=== PATIENT | female | born 1985 | race Caucasian/White ===

== ENCOUNTER 2018-11-01 20:40 | Outpatient (CLI) | payer MEDICAID ==
--- NOTE | 2018-11-02 09:59 | Ultrasound Report ---
Reason: TEST POSITIVE Procedure Date: 11/01/2018 Accession Number: [id number] / [id number] Procedure: US - OB First Trimester CPT Code: FULL RESULT: EXAM: FIRST TRIMESTER OBSTETRIC ULTRASOUND (Less than 11 weeks) EXAM DATE: 11/01/2018 10:15 PM. CLINICAL HISTORY: TEST POSITIVE. LMP: 08/06/2018. COMPARISONS: None. TECHNIQUE: Transabdominal ultrasound examination with static image documentation. CLINICAL DATES: EGA 12 weeks, 3 days with RAMIRO 05/13/2019 based on LMP. ASSESSMENT: Gestational Sac: Intrauterine with normal contours. Embryo: CRL (crown-rump length) 62 mm = 12 weeks, 4 days. Cardiac activity: 152 beats per minute. Yolk sac: Not seen. Amniotic fluid: Not accurately assessed at this gestational age. Early placenta: Anterior. Other: No perigestational fluid collection demonstrated. MATERNAL STRUCTURES: Uterus: Anteverted. Unremarkable. Cervix: Closed. Right Ovary/Adnexa: The ovary measures 2.6 x 2.1 x 1.9 cm, volume 5.4 cc. Unremarkable. Left Ovary/Adnexa: The ovary measures 2.5 x 2.3 x 1.9 cm, volume 5.7 cc. Corpus luteal cyst measures 1.5 x 1.6 x 1.4 cm. Free Fluid: None. Other: None. IMPRESSION: 1. Single viable intrauterine at EGA 12 weeks, 4 days with RAMIRO 05/12/2019 based on crown-rump length, which is concordant with LMP. 2. Assigned dating is RAMIRO 05/13/2019 based on LMP. LISAA
== END 2018-11-01 20:41 | disposition home or self-care (01) ==
LOC: DI 20:40
PROVIDERS: ATTEND Nurse Practitioner Obstetrics & Gynecology
DX: Z32.01 Encounter for pregnancy test, result positive (principal); Z3A.12 12 weeks gestation of pregnancy
CPT/HCPCS: 76801

== ENCOUNTER 2018-11-06 08:00 | Outpatient (CLI) | payer MEDICAID ==
[2018-11-06 16:23] LABS: MUDS CUTOFF CONCENTRATIONS CUTOFF CONC BELOW:
[2018-11-06 16:42] LABS: AMPHETAMINE SCREEN,URINE NEGATIVE (NEGATIVE); BENZODIAZEPINES SCREEN, URINE NEGATIVE (NEGATIVE); COCAINE SCREEN URINE NEGATIVE (NEGATIVE); METHADONE SCREEN, URINE NEGATIVE (NEGATIVE); METHAMPHETAMINES SCREEN, URINE NEGATIVE (NEGATIVE); OPIATE SCREEN, URINE NEGATIVE (NEGATIVE); OXYCODONE SCREEN, URINE NEGATIVE (NEGATIVE); PROPOXYPHENE SCREEN, URINE NEGATIVE (NEGATIVE); TRICYCLIC ANTIDEPRESSANT,URINE NEGATIVE (NEGATIVE)
== END 2018-11-06 23:59 | disposition home or self-care (01) ==
LOC: LAB.R 08:00
PROVIDERS: ATTEND Registered Nurse
DX: Z33.1 Pregnant state, incidental (principal)
CPT/HCPCS: 80306

== ENCOUNTER 2018-11-06 10:17 | Outpatient (CLI) | payer MEDICAID ==
[2018-11-06 10:33] LABS: BILIRUBIN,URINE NEGATIVE (NEGATIVE); GLUCOSE, URINE (UA) NEGATIVE (NEGATIVE); KETONES,URINE (UA) NEGATIVE (NEGATIVE); LEUKOCYTE ESTERASE, URINE NEGATIVE (NEGATIVE); NITRITE,URINE NEGATIVE (NEGATIVE); OCCULT BLOOD,URINE TRACE-INTA (NEGATIVE); PROTEIN,URINE NEGATIVE (NEGATIVE); UROBILINOGEN,URINE 0.2 (NORMAL) E.U./dL (NORMAL)
[2018-11-06 10:40] LABS: BACTERIA,URINE Rare /HPF (None Seen); CLARITY,URINE CLEAR (CLEAR); RBC,URINE 0-5 /HPF (0-5); SQUAMOUS EPITHELIAL CELL,UR RARE Squamous (<= Few)
[2018-11-06 10:50] LABS: BASOPHILS % (AUTO) 0.2 %; EOSINOPHILS # (AUTO) 0.2 10^3/uL (0.0-0.7); EOSINOPHILS % (AUTO) 1.6 %; LYMPHOCYTES # (AUTO) 1.8 10^3/uL (1.5-3.5); LYMPHOCYTES % (AUTO) 17.1 %; MEAN CORPUSCULAR HEMOGLOBIN 28.8 pg (27.0-31.0); MEAN CORPUSCULAR HGB CONC 34.4 g/dL (32.0-36.0); MEAN CORPUSCULAR VOLUME 83.5 fL (81.0-99.0); MEAN PLATELET VOLUME 9.9 fL (7.9-10.8); MONOCYTES # (AUTO) 0.5 10^3/uL (0.0-1.0); MONOCYTES % (AUTO) 4.8 %; NEUTROPHILS # (AUTO) 7.9 10^3/uL (1.5-6.6); NEUTROPHILS % (AUTO) 76.3 %; PLT - PLATELET COUNT 212 10^3/uL (130-450); RED BLOOD COUNT 4.16 10^6/uL (4.20-5.40); RED CELL DISTRIBUTION WIDTH 12.7 % (12.0-15.0); WHITE BLOOD COUNT 10.4 x10^3/uL (4.8-10.8)
[2018-11-07 13:36] LABS: HIV AG/AB 4TH GEN NON-REACTIVE (NON-REACTIVE)
[2018-11-07 13:50] LABS: HEPATITIS C ANTIBODY NON-REACTIVE (NON-REACTIVE)
[2018-11-07 13:53] LABS: HEPATITIS B SURFACE ANTIGEN NON-REACTIVE (NON-REACTIVE)
== END 2018-11-06 10:18 | disposition home or self-care (01) ==
LOC: LAB 10:17
PROVIDERS: ATTEND Registered Nurse
DX: Z33.1 Pregnant state, incidental (principal)
CPT/HCPCS: 36415; 80306; 81001; 81599; 85025; 86592; 86762; 86803; 86850; 86900; 86901; 87086; 87340; 87389

== ENCOUNTER 2019-01-01 13:14 | Outpatient (CLI) | payer MEDICAID ==
--- NOTE | 2019-01-03 11:38 | Ultrasound Report ---
Reason: Procedure Date: 01/01/2019 Accession Number: [id number] / [id number] Procedure: US - OB Detailed Eval CPT Code: FULL RESULT: EXAM: COMPLETE OBSTETRICAL ULTRASOUND EXAM DATE: 01/01/2019 01:39 PM. CLINICAL HISTORY: anatomic survey. COMPARISON: None. TECHNIQUE: Real-time sonographic evaluation of the fetus performed by the manager document. Multiple artist's representative static images were saved for review. DATING: Established EGA 21 weeks 1 day with RAMIRO 05/13/2019 based on working due date. EGA 21 weeks 2 days with RAMIRO 05/12/2019 based on first ultrasound. EGA 20 weeks 4 days with RAMIRO 05/17/2019 based on the current ultrasound. GENERAL EVALUATION Aguilera . Cardiac activity: 135 bpm. movement: Visualized. Presentation: Transverse. Placenta: Anterior position. No evidence for previa. Umbilical cord: 3 vessel cord. Central placental cord origin. Amniotic fluid: Subjectively normal. MVP 4.5 cm with DARRION 13.3 cm. BIOMETRY Bi-Parietal Diameter (BPD): 4.8 cm, 3 days Head Circumference (HC): 17.8 cm, 20 weeks 1 day Abdominal Circumference (AC): 16.3 cm, 21 weeks 2 days Femur Length (FL): 3.4 cm, 20 weeks 4 days Estimated Weight: 389 g, 35th percentile for 21 weeks 1 day. ANATOMY The intracranial structures, profile, face/nose/lips, spine, 4 chamber heart and outflow tracts, stomach, abdominal wall and cord insertion, diaphragm, kidneys, bladder, and extremities were visualized and demonstrate no abnormality. MATERNAL STRUCTURES Uterus: Unremarkable. Cervix: Long and closed. Transabdominal length 4 cm. Right ovary/adnexa: Unremarkable. Left ovary/adnexa: Unremarkable. Free fluid: None. IMPRESSION: 1. Aguilera live intrauterine with gestational age 21 weeks 1 day based on working due date. 2. Estimated weight is within expected limits for assigned dating. 3. Normal anatomic survey. No anatomic abnormalities are detected at this time. RADIA
== END 2019-01-01 13:15 | disposition home or self-care (01) ==
LOC: DI 13:14
PROVIDERS: ATTEND Registered Nurse
DX: Z36.9 Encounter for antenatal screening, unspecified (principal)
CPT/HCPCS: 76811

== ENCOUNTER 2019-01-21 02:49 | Outpatient (CLI) | payer MEDICAID ==
[2019-01-21 03:58] VITALS: BP 119/40
--- NOTE | 2019-01-23 10:44 | PROCEDURE REPORT ---
- HPI Diagnosis/Indication for NST: Other (postcoetal bleeding) Current EDU 05/13/19 Gestation 24 Weeks and 0 Days 3 Para 0 Vital Signs Temperature 37.1 C 01/21/19 03:00 Heart Rate 76 01/21/19 03:00 Respiratory Rate 16 01/21/19 03:00 Blood Pressure 119/40 L 01/21/19 03:00 O2 Saturation 98 01/21/19 03:00 Temperature 37.1 C 01/21/19 03:52 Heart Rate 76 01/21/19 03:52 Respiratory Rate 16 01/21/19 03:52 Blood Pressure 119/40 L 01/21/19 03:52 O2 Saturation 98 01/21/19 03:52 - NST Procedure normal for EGA - Results and Plan Findings/Impression: Pt had single episode of Postcoetal bleeding. Placenta is not previa. Blood type is Rh Positive. bleeding resolved. Plan: Pelvic rest 3 weeks, keep clinic appt.
== END 2019-01-21 04:05 | disposition home or self-care (01) ==
LOC: WFO 02:49 → FBP 02:50 → WFO 04:05
PROVIDERS: ATTEND Obstetrics & Gynecology
DX: O99.89 Other specified diseases and conditions complicating pregnancy, childbirth and the puerperium (principal); N93.0 Postcoital and contact bleeding; Z3A.24 24 weeks gestation of pregnancy
CPT/HCPCS: 99213

== ENCOUNTER 2019-01-23 14:14 | Outpatient (CLI) | payer MEDICAID ==
[2019-01-23 15:19] LABS: BILIRUBIN,URINE NEGATIVE (NEGATIVE); GLUCOSE, URINE (UA) NEGATIVE (NEGATIVE); KETONES,URINE (UA) NEGATIVE (NEGATIVE); LEUKOCYTE ESTERASE, URINE NEGATIVE (NEGATIVE); NITRITE,URINE NEGATIVE (NEGATIVE); OCCULT BLOOD,URINE TRACE-LYSE (NEGATIVE); PROTEIN,URINE NEGATIVE (NEGATIVE); UROBILINOGEN,URINE 0.2 (NORMAL) E.U./dL (NORMAL)
[2019-01-23 15:20] LABS: CLARITY,URINE CLEAR (CLEAR)
[2019-01-23 15:21] VITALS: BP 109/50
[2019-01-23 15:30] LABS: RBC,URINE 0-5 /HPF (0-5); SQUAMOUS EPITHELIAL CELL,UR FEW Squamous (<= Few)
[2019-01-23 15:31] LABS: BACTERIA,URINE Rare /HPF (None Seen)
--- NOTE | 2019-01-23 17:28 | Ultrasound Report ---
Reason: cramping Procedure Date: 01/23/2019 Accession Number: [id number] / [id number] Procedure: US - OB Transvaginal CPT Code: FULL RESULT: EXAM: LIMITED OBSTETRICAL ULTRASOUND EXAM DATE: 01/23/2019 04:39 PM. CLINICAL HISTORY: Cramping. Check cervical length. COMPARISON: 01/01/2019. TECHNIQUE: Real-time sonographic evaluation of the fetus performed by the dobby loom fixer. Multiple freight representative static images were saved for review. Additional transvaginal imaging to more accurately evaluate cervical length/placental position/etc. DATING: Established EGA 24 weeks 2 days with RAMIRO 05/13/2019. GENERAL EVALUATION Aguilera . Cardiac activity: 138 bpm. movement: Visualized. Presentation: Cephalic. Placenta: Anterior position. Amniotic fluid: Normal. DARRION 16.0 cm. MVP 4.8 cm. MATERNAL STRUCTURES Cervix closed, 3.6 cm long. IMPRESSION: 1. Aguilera live intrauterine with gestational age 24 weeks 2 days based on established RAMIRO. 2. Closed cervix 3.6 cm long. RADIA
[2019-01-23 20:59] LABS: CANDIDA GROUP DNA NEGATIVE (NEGATIVE); CANDIDA KRUSEI DNA NEGATIVE (NEGATIVE); TRICHOMONAS VAGINALIS DNA NEGATIVE (NEGATIVE)
--- NOTE | 2019-01-25 12:38 | PROVIDER PROGRESS NOTE ---
- HPI Chief Complaint: Labor Current : Current EDU 05/13/19 Gestation 24 Weeks and 2 Days 3 Para 0 Vital Signs Temperature 36.8 C 01/23/19 14:35 Heart Rate 69 01/23/19 14:35 Respiratory Rate 18 01/23/19 14:35 Blood Pressure 109/50 L 01/23/19 14:35 O2 Saturation 98 01/23/19 14:35 Temperature 36.8 C 01/23/19 14:35 Heart Rate 69 01/23/19 14:35 Respiratory Rate 18 01/23/19 14:35 Blood Pressure 109/50 L 01/23/19 14:35 O2 Saturation 98 01/23/19 14:35 - Exam Diana presents to [facility] with complaints of lower abdominal cramping. She denies VB or Lof and reports +FM. She first phoned the clinic and was directed to present to L&D for further evaluation. O: NST reactive for 24wks. Baseline 140s, no decels. Tocometry does not reveal contractions with extended monitoring x 1 hour Upon palpation some mild uterine irritability noted. No tenderness noted. A: 33yo @ 24wks gestation False labor <37wks gestation, second trimester Abdominal cramping UA neg AFFIRM - pending Transvaginal cervical length 3.6cm P: Advised increased fluid intake AFFIRM pending - will notify patient of results if abnormal and treatment PRN Pt released home with precautions and instruction to f/u within the next week or sooner PRN. - Procedures OB Procedure Performed: Other Diagnosis/Indication for NST: Other NST Procedure: NST reactive for 24 wks FHR baseline 140s, no decelerations noted Tocometry reveals absence of uterine contractions Date: 01/23/19 Findings: Transvaginal cervical length WNL. UA neg Tocometry is absent of uterine contractions. Mild uterine irritability palpated No vaginal bleeding or leakage of fluid. Pt reports +FM - Plan Plan: Advised increased fluid intake AFFIRM pending - will notify patient of results if abnormal and treatment PRN Pt released home with precautions and instructions to f/u in the clinic within the next week or sooner PRN. Has emergency contact information. DIAGNOSIS: Abdominal cramping False labor <37wks gestation, second trimester
== END 2019-01-23 18:00 | disposition home or self-care (01) ==
LOC: WFO 14:14 → FBP 14:18 → WFO 18:00
PROVIDERS: ATTEND Nurse Practitioner Obstetrics & Gynecology
DX: O47.02 False labor before 37 completed weeks of gestation, second trimester (principal); Z3A.24 24 weeks gestation of pregnancy
CPT/HCPCS: 76817; 81001; 87086; 87661; 87801; 99214

== ENCOUNTER 2019-01-26 20:37 | Outpatient (CLI) | payer MEDICAID ==
[2019-01-26 21:34] VITALS: BP 120/49
--- NOTE | 2019-01-30 10:01 | PROCEDURE REPORT ---
- HPI Diagnosis/Indication for NST: Other (LLQ pain and tnederness) Current EDU 05/13/19 Gestation 24 Weeks and 5 Days 3 Para 0 Vital Signs Temperature 36.8 C 01/26/19 21:17 Heart Rate 77 01/26/19 21:17 Respiratory Rate 18 01/26/19 21:17 Blood Pressure 120/49 L 01/26/19 21:17 O2 Saturation 100 01/26/19 21:17 Temperature 36.8 C 01/26/19 21:17 Heart Rate 77 01/26/19 21:17 Respiratory Rate 18 01/26/19 21:17 Blood Pressure 120/49 L 01/26/19 21:17 O2 Saturation 100 01/26/19 21:17 - NST Procedure Strip is compatable with 24 weeks - Results and Plan Findings/Impression: Pt had LLQ pain worse with movement. recent onset. Pt has been working twisting and lifting. Tender to direct palpation. no bleeding. Us poaterior. Imression round liganent pain. Plan local measures. keep apppt. Plan: see above
--- NOTE | 2019-01-30 10:15 | PROCEDURE REPORT ---
- HPI Diagnosis/Indication for NST: Other (post coetal spotting) Current EDU 05/13/19 Gestation 24 Weeks and 5 Days 3 Para 0 Vital Signs Temperature 36.8 C 01/26/19 21:17 Heart Rate 77 01/26/19 21:17 Respiratory Rate 18 01/26/19 21:17 Blood Pressure 120/49 L 01/26/19 21:17 O2 Saturation 100 01/26/19 21:17 Temperature 36.8 C 01/26/19 21:17 Heart Rate 77 01/26/19 21:17 Respiratory Rate 18 01/26/19 21:17 Blood Pressure 120/49 L 01/26/19 21:17 O2 Saturation 100 01/26/19 21:17 - NST Procedure Pt developed red blood per vagina following intercourse. no pain. notes good motion. US showed posterior placenta with out previa. Strip is reactive for 24 weeks - Results and Plan Findings/Impression: Post coeatal bleeding Plan: Pelvic rest 2 weeks
== END 2019-01-26 22:00 | disposition home or self-care (01) ==
LOC: WFO 20:37 → FBP 20:39 → WFO 22:00
PROVIDERS: ATTEND Obstetrics & Gynecology
DX: O99.89 Other specified diseases and conditions complicating pregnancy, childbirth and the puerperium (principal); M24.20 Disorder of ligament, unspecified site; N93.0 Postcoital and contact bleeding; Z3A.24 24 weeks gestation of pregnancy
CPT/HCPCS: 99212

== ENCOUNTER 2019-02-05 11:48 | Outpatient (CLI) | payer MEDICAID ==
[2019-02-05 13:23] LABS: HGB - HEMOGLOBIN 10.6 g/dL (12.0-16.0); MEAN CORPUSCULAR HEMOGLOBIN 28.3 pg (27.0-31.0); MEAN CORPUSCULAR HGB CONC 33.7 g/dL (32.0-36.0); MEAN PLATELET VOLUME 9.7 fL (7.9-10.8); RED BLOOD COUNT 3.74 10^6/uL (4.20-5.40); RED CELL DISTRIBUTION WIDTH 12.6 % (12.0-15.0); WHITE BLOOD COUNT 11.2 x10^3/uL (4.8-10.8)
== END 2019-02-05 11:49 | disposition home or self-care (01) ==
LOC: LAB 11:48
PROVIDERS: ATTEND Nurse Practitioner Obstetrics & Gynecology
DX: Z36.89 Encounter for other specified antenatal screening (principal)
CPT/HCPCS: 36415; 82950; 85027; 86850

== ENCOUNTER 2019-02-12 07:53 | Outpatient (CLI) | payer MEDICAID | END 2019-02-12 07:54 | disposition home or self-care (01) | LOC: LAB 07:53 | PROVIDERS: ATTEND Nurse Practitioner Obstetrics & Gynecology | DX: O99.810 Abnormal glucose complicating pregnancy (principal) | CPT/HCPCS: 36415; 82951; 82952 ==

== ENCOUNTER 2019-02-20 08:00 | Outpatient (CLI) | payer MEDICAID | END 2019-02-20 08:01 | disposition home or self-care (01) | LOC: LAB.R 08:00 | PROVIDERS: ATTEND Nurse Practitioner Obstetrics & Gynecology | DX: R82.79 Other abnormal findings on microbiological examination of urine (principal) | CPT/HCPCS: 87086 ==

== ENCOUNTER 2019-04-16 08:00 | Outpatient (CLI) | payer MEDICAID ==
[2019-04-16 21:48] LABS: TRICHOMONAS VAGINALIS DNA NEGATIVE (NEGATIVE)
== END 2019-04-16 23:59 | disposition home or self-care (01) ==
LOC: LAB.R 08:00
PROVIDERS: ATTEND Nurse Practitioner Obstetrics & Gynecology
DX: Z36.85 Encounter for antenatal screening for Streptococcus B (principal)
CPT/HCPCS: 87491; 87591; 87661; 87797

== ENCOUNTER 2019-04-30 14:21 | Outpatient (CLI) | payer MEDICAID ==
[2019-04-30 15:27] VITALS: BP 121/77
--- NOTE | 2019-04-30 16:40 | PROVIDER PROGRESS NOTE ---
- HPI Chief Complaint: Decreased movement Current : Current EDU 05/13/19 Gestation 38 Weeks and 1 Days 3 Para 0 Vital Signs Temperature 37 C 04/30/19 15:06 Heart Rate 74 04/30/19 15:06 Respiratory Rate 20 04/30/19 15:06 Blood Pressure 119/61 04/30/19 15:06 Temperature 37 C 04/30/19 15:06 Heart Rate 79 04/30/19 15:15 Respiratory Rate 18 04/30/19 15:15 Blood Pressure 121/77 04/30/19 15:15 O2 Saturation - Exam Date of service: 04/30/2019 Diana presents to [facility] as directed from her routine office visit secondary to elevated blood pressure without diagnosis of hypertension in addition to decreased movement over the past 48 hours. She denies MOELLER, RUQ or epigastric pain, or edema. She reports floaters in her visual field for the past several weeks. She denies vaginal bleeding or leakage of fluid. BP stable 116/70s during her time in [facility]. NST reactive. Baseline 130s, moderate variability, + accels, no decels. Assessment/Plan: Elevated blood pressure without the diagnosis of gestational hypertension - PIH labs WNL. 24 hour urine protein - negative. Decreased movement - NST reactive (See above) Pt to present to [facility] for BP check tomorrow. Pt verbalized understanding and agrees to above plan. She denies further questions or concerns today. Pt released home with precautions. FINAL DIAGNOSIS: Elevated blood pressure without the diagnosis of gestational hypertension. Decreased movement - Procedures NST Procedure: NST Procedure Start Date 04/30/19 Start Time 15:05 Stop Time 15:32 Vibroacoustic Stimulation Used No Patient States Movement Yes: decreased Service Date of procedure: 04/30/19 Procedure Details: NST reactive. Baseline 130s, moderate variability, + accels, no decels.
== END 2019-04-30 15:59 | disposition home or self-care (01) ==
LOC: WFO 14:21 → FBP 14:25 → WFO 15:59
PROVIDERS: ATTEND Nurse Practitioner Obstetrics & Gynecology
DX: O36.8130 Decreased fetal movements, third trimester, not applicable or unspecified (principal); O12.13 Gestational proteinuria, third trimester; R03.0 Elevated blood-pressure reading, without diagnosis of hypertension; Z3A.38 38 weeks gestation of pregnancy
CPT/HCPCS: 36415; 59025; 80053; 82570; 84156; 84550; 85027

== ENCOUNTER 2019-04-30 14:26 | Outpatient (CLI) | payer MEDICAID ==
[2019-04-30 14:56] LABS: HGB - HEMOGLOBIN 11.1 g/dL (12.0-16.0); MEAN CORPUSCULAR HEMOGLOBIN 28.5 pg (27.0-31.0); MEAN CORPUSCULAR HGB CONC 33.3 g/dL (32.0-36.0); MEAN CORPUSCULAR VOLUME 85.4 fL (81.0-99.0); MEAN PLATELET VOLUME 12.5 fL (7.9-10.8); RED BLOOD COUNT 3.9 10^6/uL (4.20-5.40); WHITE BLOOD COUNT 11.7 x10^3/uL (4.8-10.8)
[2019-04-30 15:08] LABS: CREATININE,URINE 42.9 mg/dL
[2019-04-30 15:09] LABS: ALBUMIN 3.3 g/dL (3.2-5.5); ALBUMIN/GLOBULIN RATIO 0.9 (1.0-2.2); BILIRUBIN,TOTAL 0.3 mg/dL (0.2-1.0); CALCIUM 8.9 mg/dL (8.5-10.3); CREATININE 0.5 mg/dL (0.4-1.0); TOTAL PROTEIN 6.8 g/dL (6.7-8.2); URIC ACID 5.8 mg/dL (2.6-7.2)
[2019-04-30 16:04] LABS: TOTAL PROTEIN,URINE TIMED < 6 mg/dL
== END 2019-04-30 14:27 | disposition home or self-care (01) ==
LOC: LAB 14:26
PROVIDERS: ATTEND Nurse Practitioner Obstetrics & Gynecology
DX: O12.13 Gestational proteinuria, third trimester (principal); R03.0 Elevated blood-pressure reading, without diagnosis of hypertension
CPT/HCPCS: 36415; 80053; 82570; 84156; 84550; 85027

== ENCOUNTER 2019-05-02 08:02 | Outpatient (CLI) | payer MEDICAID ==
[2019-05-02 15:51] LABS: CREATININE,URINE 85.1 mg/dL
== END 2019-05-02 23:59 | disposition home or self-care (01) ==
LOC: LAB.R 08:02
PROVIDERS: ATTEND Nurse Practitioner Obstetrics & Gynecology
DX: O12.13 Gestational proteinuria, third trimester (principal); R03.0 Elevated blood-pressure reading, without diagnosis of hypertension
CPT/HCPCS: 82570; 84156

== ENCOUNTER 2019-05-05 10:45 | Outpatient (CLI) | payer MEDICAID ==
[2019-05-05 10:58] VITALS: BP 124/70
[2019-05-05 11:28] LABS: RUPTURE OF MEMBRANES PLUS NEGATIVE (NEGATIVE)
--- NOTE | 2019-05-27 08:00 | PROVIDER PROGRESS NOTE ---
Subjective - Prog Note Date Prog Note Date: 05/05/19 - Subjective Subjective: Diana presents to [facility] with c/o vaginal "gush" of clear fluid. She reports occasional contractions which seem to be increasing in intensity but did slow down on her drive to the hospital. She reports +FM. NST - reactive. Baseline 140s, moderate variability, + accels, no decels Date of service 05/05/2019. Date NST read 05/05/2019 ROM plus negative and her pad was dry upon arrival. Final DIAGNOSIS: False labor >37wks gestation Patient released home with precautions.
== END 2019-05-05 11:45 | disposition home or self-care (01) ==
LOC: WFO 10:45 → FBP 10:46 → WFO 11:45
PROVIDERS: ATTEND Nurse Practitioner Obstetrics & Gynecology
DX: O47.1 False labor at or after 37 completed weeks of gestation (principal); Z3A.00 Weeks of gestation of pregnancy not specified
CPT/HCPCS: 84112; 99213

== ENCOUNTER 2021-07-30 20:33 | Emergency (ER) | payer MEDICAID ==
[2021-07-30] MEDS ORDERED: HYDROmorphone 1 MG/ML CARPUJECT IM STA (20:54)
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
--- NOTE | 2021-07-30 21:30 | XRAY Report ---
PROCEDURE: Shoulder 3 View RT INDICATIONS: pain TECHNIQUE: 3 views of the shoulder were acquired. COMPARISON: None. FINDINGS: Bones: No fractures or dislocations. No suspicious bony lesions. Visualized ribs appear intact. Soft tissues: No suspicious soft tissue calcifications. IMPRESSION: No evidence acute bony abnormality of the right shoulder. If clinical suspicion and/or symptoms persist, further assessment with repeat plain films or advanced imaging (e.g., CT, MRI, or bone scan) may be helpful for further assessment. Reviewed by: Evangelista Waggoner MD on 07/30/2021 9:29 PM PST Approved by: Evangelista Waggoner MD on 07/30/2021 9:29 PM PST Station ID: [id number]
[2021-07-30 21:52] VITALS: BP 115/51
== END 2021-07-30 21:52 | disposition home or self-care (01) ==
LOC: ED 20:33
DX: M25.511 Pain in right shoulder (principal); G89.29 Other chronic pain; F17.200 Nicotine dependence, unspecified, uncomplicated
CPT/HCPCS: 73030; 96372; 99283; J1170

== ENCOUNTER 2021-10-05 08:45 | Outpatient (CLI) | payer MEDICAID ==
--- NOTE | 2021-10-05 13:28 | MRI Report ---
PROCEDURE: Shoulder RT W/O INDICATIONS: STRAIN OF MUSCLE AND TENDON OF THE ROTATOR CUFF TECHNIQUE: Noncontrast oblique coronal T2 fast spin echo with fat saturation, oblique sagittal T1 spin echo and T2 fast spin echo with fat saturation, axial T1 spin echo and T2 fast spin echo with fat saturation t hrough the shoulder. COMPARISON: None. Findings: Supraspinatus: Mild tendinopathy with small partial bursal surface and interstitial tears. Infraspinatus: Mild tendinopathy with evidence of tear. Subscapularis: No evidence of tear. Teres minor: No evidence of tear. Labrum: No evidence of tear. Biceps tendon: No evidence of subluxation or tear. Acromioclavicular joint: Normal alignment. Muscle: No significant atrophy. Bones: No significant abnormality. Specifically, no evidence of fracture, contusion, or necrosis. Miscellaneous: No glenohumeral joint effusion. No subacromial/subdeltoid bursal fluid. No intra-articular bodies. Intact coracoclavicular ligament. IMPRESSION: 1. Mild supraspinatus tendinopathy with small bursal surface and interstitial tears. 2. Mild infraspinatus tendinopathy. Reviewed by: Rashel Rhodes MD on 10/05/2021 1:27 PM PST Approved by: Rashel Rhodes MD on 10/05/2021 1:27 PM PST Station ID: [id number]
== END 2021-10-05 08:46 | disposition home or self-care (01) ==
LOC: DI 08:45
PROVIDERS: ATTEND Physician Assistant
DX: S46.011A Strain of muscle(s) and tendon(s) of the rotator cuff of right shoulder, initial encounter (principal)

== ENCOUNTER 2022-06-13 09:35 | Outpatient (CLI) | payer MEDICAID | END 2022-06-13 09:36 | disposition home or self-care (01) | LOC: LAB 09:35 | PROVIDERS: ATTEND Obstetrics & Gynecology | DX: Z01.812 Encounter for preprocedural laboratory examination (principal); R87.619 Unspecified abnormal cytological findings in specimens from cervix uteri; Z20.822 Contact with and (suspected) exposure to COVID-19 ==

== ENCOUNTER 2022-06-14 07:35 | Day surgery (SDC) | payer MEDICAID ==
[~2022-06-14 07:35] MED LIST: LIDOCAINE MPF 2%-EPI 1:200000 20 ML VIAL ONE; POTASSIUM IODIDE/IODINE 14 ML SOLUTION ONE
[2022-06-14] MEDS ORDERED: LACTATED RINGERS 1,000 ML IV ONE ×2 (07:57→09:37)
[2022-06-14 08:07] LABS: HCG UR QUAL NEGATIVE
--- NOTE | 2022-06-14 08:17 | ANESTHESIA ---
Pre-Anesthesia VS, & Labs - Diagnosis atypical glandular cells - Procedure LEEP Vital Signs: Temp Pulse Resp BP Pulse Ox O2 Flow Rate 36.9 C 82 16 129/74 99 06/14/22 07:52 06/14/22 07:52 06/14/22 07:52 06/14/22 07:52 06/14/22 07:52 Height: 4 ft 11.75 in Weight (kg): 53 kg Body Mass Index: 23.0 BMI Classification: Normal - NPO >8 hours - Is Patient ?: No Home Medications and Allergies Home Medications: Ambulatory Orders Escitalopram [Lexapro] 10 mg PO DAILY 06/06/22 Escitalopram [Lexapro] 10 mg PO DAILY 06/06/22 Allergies/Adverse Reactions: Allergies Allergy/AdvReac Type Severity Reaction Status Date / Time amoxicillin [Amoxicillin] AdvReac Nausea Verified 07/30/21 20:42 hydrocodone bitartrate * AdvReac Nausea Verified 07/30/21 20:42 [From Vicodin] Anes History & Medical History - Anesthetic History Anesthesia Complications: reports: No previous complications - Medical History Cardiovascular: reports: Murmur Pulmonary: reports: None Gastrointestinal: reports: GERD Urinary: reports: None Neuro: reports: None Musculoskeletal: reports: Osteoarthritis Endocrine/Autoimmune: reports: None Blood Disorders: reports: None Skin: reports: None Smoking Status: Current every day smoker History of Cancer?: No - Surgical History Eyes Ears Nose Throat (EENT): reports: Tonsil/Adenoidectomy Exam General: Alert, Oriented x3 Dental: WNL Mouth Opening: Greater than 4 Fingerbreadths Mallampati classification: II Thyromental Distance: greater than 6 cm Respiratory: Lungs clear Cardiovascular: Regular rate Plan Anesthesia Type: General Consent for Procedure(s) Verified and Reviewed: Yes Code Status: Attempt Resuscitation ASA classification: 2-Mild systemic disease Is this case an emergency?: No
[2022-06-14] MEDS ORDERED: METOCLOPRAMIDE 10 MG/2 ML VIAL IVP PRN (08:18)
[2022-06-14] MEDS ORDERED: ONDANSETRON 4 MG/2 ML VIAL IVP PRN (08:18)
[2022-06-14] MEDS ORDERED: fentaNYL 100 MCG/2 ML VIAL IVP PRN (08:18)
[2022-06-14] MEDS ORDERED: HYDROmorphone 0.5 MG/0.5 ML SYRINGE IVP PRN (08:18)
[2022-06-14] MEDS ORDERED: NALOXONE 0.4 MG/ML VIAL IVP PRN (08:18)
[2022-06-14] MEDS ORDERED: ATROPINE ABBOJECT 1 MG/10 ML SYRINGE IVP PRN (08:18)
[2022-06-14] MEDS ORDERED: ePHEDrine 50 MG/ML VIAL IVP PRN (08:18)
[2022-06-14] MEDS ORDERED: MIDAZOLAM 2 MG/2 ML VIAL ONE (08:22)
[2022-06-14] MEDS ORDERED: PROPOFOL 200 MG/20 ML VIAL IVP ONE (08:33)
[2022-06-14] MEDS ORDERED: DEXAMETHASONE 4 MG/ML VIAL ONE (08:41)
[2022-06-14] MEDS ORDERED: KETOROLAC 30 MG/ML VIAL ONE (08:41)
[2022-06-14] MEDS ORDERED: POTASSIUM IODIDE/IODINE 14 ML SOLUTION TOP ONE (08:57)
[2022-06-14] MEDS ORDERED: LACTATED RINGERS 1,000 ML IV SCH (09:00)
[2022-06-14] MEDS ORDERED: FERRIC SUBSULFATE 8 ML SOLUTION (FOR OR) TOP ONE (09:18)
[2022-06-14] MEDS ORDERED: LIDOCAINE 2%-EPI 1:100000 20 ML MDV SUBQ ONE (09:19)
[2022-06-14] MEDS ORDERED: HYDROcod/ACETAM 5/325 MG TABLET PO PRN (09:25)
--- NOTE | 2022-06-14 09:37 | OPERATIVE REPORT ---
Operative Report - General Procedure Date: 06/14/22 Planned Procedure: LEEP, Endocervical curettage, endometrial biopsy Pre-Op Diagnosis: SANDY-2, atypical glandular cells Procedure Performed: LEEP, Endocervical curettage, endometrial biopsy Post Op Diagnosis: Same - Procedure Note Primary Surgeon: Bennett Negro MD Anesthesia Provider: Miri Cruz CRNA Anesthesia Technique: General ET tube Pathology: 1. Endocervical curettage 2. Endometrial biopsy 3. LEEP biopsy IV Fluids (mL): 600 Estimated Blood Loss (mL): 10 Complications: None - Other Other Information/Narrative: She was seen previously in office with a Pap showing atypical glandular cells. Patient was very anxious about the procedure and decided she would rather have this performed in the OR. She declined colposcopy as she had a previous history of SANDY-2 and is previously recommended to have this surgically removed. She desired to proceed directly to LEEP rather than colposcopy. Prior to the procedure, patient was counseled the risk, benefits, alternatives of the LEEP. We discussed risks of bleeding, inadequate control of disease, infection, damage to other organs. She agreed to proceed. Patient was taken to the operating room and placed in dorsal supine position. General anesthesia was obtained without difficulty. Patient was then moved to dorsolithotomy position. Coated speculum was used to visualize the cervix. Erythematous, vascular cervix was noted through much of the transformation zone. The anterior lip of the cervix was grasped with a single-tooth tenaculum. Using 2% lidocaine with epinephrine, a cervical and paracervical block was performed using 9 cc of local anesthetic. An endocervical curettage was then performed with a Kevorkian curette. This was placed in formalin. The endometrial biopsy was then performed with a 3 mm endometrial biopsy Pipelle. The uterus sounded to 7 cm, and suction was created. Rotating the Pipelle and using a [id number]-sveil action, all quadrants of the uterus were sampled. A total of 3 passes were performed. The samples were placed in formalin. Using Lugol's solution, the cervix was dyed, however mostly transformation zone did not have uptake. The patient's right side of the cervix also had decreased uptake for approximately 7-10 o'clock extending towards the vaginal wall. The LEEP machine was then used to create suction as the electrocautery was used to remove the anterior portion of the cervix. The segment came out in 1 piece. This was placed in formalin and sent to pathology. Using the ball electrode, risk of bleeding was stopped. Monsel's solution was then used to achieve complete hemostasis. All instruments were removed from the vagina. Patient tolerated procedure well. Counts were correct. Patient was taken the PACU in stable condition.
[2022-06-14] MEDS ORDERED: ACETAMINOPHEN 500 MG TABLET PO SCH (10:00)
[2022-06-14 10:24] VITALS: BP 125/50
--- NOTE | 2022-06-14 15:32 | ANESTHESIA POST OP EVALUATION ---
Anesthesia Post Eval - Post Anesthesia Eval Vitals: Last Vital Signs Temp 36.7 C 06/14/22 09:59 Pulse 75 06/14/22 10:22 Resp 16 06/14/22 10:22 BP 125/50 L 06/14/22 10:22 Pulse Ox 98 06/14/22 10:22 O2 Flow Rate CV Function Including HR & BP: Stable Pain Control: Satisfactory Nausea & Vomiting: Negative Mental Status: Baseline Respiratory Status: Airway Patent Hydration Status: Satisfactory Anesthesia Complications: None
== END 2022-06-14 07:36 | disposition home or self-care (01) ==
LOC: SDS 07:35
PROVIDERS: ATTEND Obstetrics & Gynecology
PROC: 0UBC7ZZ Excision of Cervix, Via Natural or Artificial Opening (ICD-10-PCS; principal; 2022-06-14 08:30)
DX: N87.1 Moderate cervical dysplasia (principal); F17.210 Nicotine dependence, cigarettes, uncomplicated
CPT/HCPCS: 57522; 81025; A9270; J7120